=== PATIENT | male | born 1960 | race Caucasian/White ===

== ENCOUNTER 2020-12-26 12:33 | Emergency (ER) | payer MEDICARE, MEDICAID ==
[~2020-12-26] VITALS: Ht 180.3 cm; Wt 113.2 kg
[~2020-12-26 12:33] MED LIST: ASPI-1265 PO; DEXL30CA3 PO; DULO20CA50 PO; HYDR-4383 PO; LISI-222 PO; SIMV-42 PO; TRAM50TA2 PO
[2020-12-26 12:50] VITALS: BP_DIAS 123
[2020-12-26] MEDS ORDERED: AMLO10TA48 PO (13:02)
[2020-12-26] MEDS ORDERED: amLODIPine 5mg tablet PO ONE (13:05)
[2020-12-26 13:08] VITALS: BP_SYST 194
== END 2020-12-26 13:19 | disposition home or self-care (01) ==
LOC: ER 12:34
DX: I10 Essential (primary) hypertension (principal); R42 Dizziness and giddiness; K21.9 Gastro-esophageal reflux disease without esophagitis; F19.90 Other psychoactive substance use, unspecified, uncomplicated; Z86.73 Personal history of transient ischemic attack (TIA), and cerebral infarction without residual deficits; Z72.89 Other problems related to lifestyle; Z88.0 Allergy status to penicillin; Z79.82 Long term (current) use of aspirin; Z79.899 Other long term (current) drug therapy
CPT/HCPCS: 93005; 99283